=== PATIENT | male | born 1990 | race Caucasian/White ===

== ENCOUNTER 2017-08-05 17:19 | Emergency (ER) | payer SELFPAY ==
[~2017-08-05] VITALS: Ht 170.2 cm; Wt 60.0 kg
[2017-08-05] MEDS ORDERED: SODIUM CHLORIDE 0.9% 1,000 ML IV ONE ×2 (22:17)
[2017-08-05 23:39] LABS: BASOPHILS % 0.3 % (0.0-2.0); HEMATOCRIT. 44.3 % (42.0-52.0); HEMOGLOBIN. 15.3 g/dL (14.0-18.0); LYMPHOCYTES % 14.8 % (20.0-50.0); MEAN CORPUSCULAR HEMOGLOBIN 31.6 pg (28.0-32.0); MEAN CORPUSCULAR VOLUME 91.3 fL (80.0-94.0); MEAN PLATELET VOLUME 7.2 fl (7.4-10.4); MONOCYTES % 9.9 % (2.0-8.0); PLATELET 149 x1000/uL (130-400); RED BLOOD CELL COUNT 4.85 mill/uL (4.7-6.1)
[2017-08-05] MEDS ORDERED: LORAZEPAM 2MG/ML CPJ IV NR (23:45)
[2017-08-05 23:46] LABS: PROTHROMBIN TIME 10.7 sec (9.4-11.6)
[2017-08-05 23:49] LABS: CHLORIDE 106 mEq/L (98-107)
[2017-08-05 23:51] LABS: AMMONIA 48 uMol/L (<32)
[2017-08-05 23:54] LABS: ETHANOL BLOOD < 10 mg/dL
[2017-08-05 23:58] LABS: CREATINE KINASE 574 IU/L (39-308)
[2017-08-06] MEDS ORDERED: SODIUM CHLORIDE 0.9% 1000ML BAG (SEPSIS BOLUS) IV NR (00:15)
[2017-08-06] MEDS ORDERED: LACTULOSE 20G/30ML UDC PO NR (00:15)
[2017-08-06] MEDS ORDERED: MIDAZOLAM HCL 2 MG/2 ML VIAL IV ONE ×2 (02:00→03:00)
[2017-08-06 03:25] LABS: CLARITY URINE TURBID (CLEAR); COLOR URINE YELLOW (YELLOW); KETONES URINE NEGATIVE (NEGATIVE); LEUKOCYTE ESTERASE URINE NEGATIVE (NEGATIVE); NITRITE URINE NEGATIVE (NEGATIVE); OCCULT BLOOD URINE NEGATIVE (NEGATIVE); PH URINE 5.5 (4.5-8.0); PROTEIN URINE TRACE (NEGATIVE); SPECIFIC GRAVITY URINE 1.005 (1.005-1.030); UROBILINOGEN URINE 0.2 E.U./dL (0.2-1.0)
[2017-08-06 03:42] LABS: *AMPHETAMINES SCREEN URINE PRESUMTIVE POSITIVE (NEGATIVE); *BARBITURATES SCREEN URINE NEGATIVE (NEGATIVE); *BENZODIAZEPINES SCREEN URINE NEGATIVE (NEGATIVE)
[2017-08-06 03:43] LABS: *COCAINE SCREEN URINE NEGATIVE (NEGATIVE); CANNABINOID URINE SCREEN PRESUMTIVE POSITIVE (NEGATIVE); METHADONE URINE SCREEN NEGATIVE (NEGATIVE); OPIATES URINE SCREEN NEGATIVE (NEGATIVE); PHENCYCLIDINE URINE SCREEN NEGATIVE (NEGATIVE)
[2017-08-06 07:15] VITALS: BP 162/89
== END 2017-08-06 09:00 | disposition home or self-care (01) ==
LOC: ER 17:25 → EDBD 17:25 → ER 08-06 09:00
DX: E87.2 Acidosis (principal); F15.10 Other stimulant abuse, uncomplicated; G93.89 Other specified disorders of brain; R79.1 Abnormal coagulation profile
CPT/HCPCS: 36415; 70450; 80053; 80305; 81003; 82140; 82550; 82962; 83605; 83690; 83880; 84484; 85025; 85610; 93005; 96361; 96374; 96375; 96376; 99291; G0482; J2060; J2250; J7030; Z7610